=== PATIENT | male | born 1990 | race Caucasian/White ===

== ENCOUNTER 2016-08-15 05:29 | Emergency (ER) | payer OTHER ==
--- NOTE | 2016-08-15 06:46 | ED ORDER SUMMARY ---
..... Patient: SATURNINO HANNA OrderSheet [facility]ly [facility] VisitID: [id number] [address] [place] [address] 26y, M Registration Date/Time: 08/15/2016 ORDER SHEET Weight: 90.7 kg (stated) Allergies: GENERAL ORDERS: Urine Drug Screen Urgent (05:57 08/15/2016 Clement CARROLL) (Ack 6:00 Eileen Stogy Roller) MEDICATION ORDERS: IV FLUIDS: ORDER SHEET NOTES: [Electronically signed by Sahara Wheeler R.N. (06:46 08/15/2016)] [Electronically locked/signed by Sahara Wheeler R.N. (06:46 08/15/2016)]
--- NOTE | 2016-08-15 06:46 | ED ORDER SUMMARY ---
..... Patient: SATURNINO HANNA OrderSheet [facility] VisitID: [id number] [address] [place] [address] 26y, M Registration Date/Time: 08/15/2016 ORDER SHEET Weight: 90.7 kg (stated) Allergies: GENERAL ORDERS: Urine Drug Screen Urgent (05:57 08/15/2016 Clement CARROLL) (Ack 6:00 Eileen Technical Research Scientist) MEDICATION ORDERS: IV FLUIDS: ORDER SHEET NOTES: [Electronically signed by Sahara Wheeler R.N. (06:46 08/15/2016)] [Electronically locked/signed by Sahara Wheeler R.N. (06:46 08/15/2016)]
--- NOTE | 2016-08-15 06:46 | ED CLINICAL REPORT ---
Clinical Report - Physicians/Mid Levels [facility] [address] [place] [address] 08/15/2016 5:30 Patient: SATURNINO HANNA *This is a preliminary document and is subject to change Time Seen: 05:33. Arrived- By ambulance. Historian- patient and EMS personnel. HISTORY OF PRESENT ILLNESS Chief Complaint: DRUG OVERDOSE. This occurred just prior to arrival. Toxic symptoms present in ED with drowsiness and agitation. Single drug taken- Heroin. History of recent heroin use. Last used drugs just prior to arrival. Under influence in ED. Son Hill MD
--- NOTE | 2016-08-15 06:46 | ED NURSING NOTES ---
Clinical Report - Nurses [facility] [address] [place] [address] 08/15/2016 5:30 Patient: SATURNINO HANNA TRIAGE Triage time 05:33. Chief Complaint: LOSS OF CONSCIOUSNESS and UNRESPONSIVE and (pt was using heroin today,). --05:35 Sahara Wheeler R.N. Acuity: LEVEL 3. Alert. --05:43 Sahara Wheeler R.N. 05:39 08/15/16. BP: 133/87. HR: 90. RR: 15. O2 saturation: 100%. Pain level now: 0/10. --05:43 Sahara Wheeler R.N. Weight: 90.7 kg stated. Height/Length: 75 inches Per Patient. BMI: 25. --05:42 Sahara Wheeler R.N. History Arrived by EMS. Historian: patient. 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 Medications given- (2mg IntraNasally). --05:35 Sahara Wheeler R.N. ( pt refusing care, talking with EDMD, trying to leave against medical advice). --05:35 Sahara Wheeler R.N. SOCIAL HX: History of drug use: heroin. Recently used drugs today. --05:35 Sahara Wheeler R.N. SOCIAL HX: Never smoker. Occasional alcohol use. History of drug use: heroin. --05:43 Sahara Wheeler R.N. Interventions ID band on patient. To treatment room. --05:43 Sahara Wheeler R.N. PHYSICAL ASSESSMENT To room via stretcher. GENERAL / NEURO / PSYCH: Alert. Appears anxious. Patient's speech is slurred. Patient does not appear neat and clean. Patient appears unkempt. Poor hygiene. Clothes are dirty. RESPIRATORY: Respirations not labored. CVS: Capillary refill less than 2 seconds. SKIN: Skin is warm and dry. --05:44 Sahara Wheeler R.N. NURSING PROGRESS NOTES Head of bed elevated. Two patient identifiers checked. Call light placed in reach. Side rails up x 2. Bed placed in lowest position. Brakes of bed on. --:45 Sahara Wheeler R.N. Patient ready for evaluation- chart flagged. --:45 Sahara Wheeler R.N. focusing machine operator, pulse oximeter and NIBP monitor placed on patient; monitor alarms on. --:45 Sahara Wheeler R.N. ( pt continues to argue with staff about not having given consent to be here. explained to pt in detail, that if he leaves the narcan he was given will wear off and he could stop breathing again. Pt states that he understands that but does not want the charges a hospital visit costs. Pt informed that there are programs in place to help pay for his visits if he fills out paperwork. Pt fixated on the idea that it is "illegal to hold him here, against his will". continuing encouragement given for pt to lay back, and stay the 4 hours monitoring time.). --05:58 Sahara Wheeler R.N. 06:24 Patient out of room asking for coffee and water - watched pt as he got himself a cup of each. --06:34 Alexsander Hernandez R.N. 06:28 Patient came up to me while I was filling out the staffing board and stated I need to leave, I again explained to him why he needed to stay, and that if he left we would call the police, he stated "then call I'm leaving"- PD was called and I followed him to the corner if [place]. --06:39 Alexsander Hernandez RCheryl DISPOSITION / DISCHARGE <<STRICKEN ENTRY-- 06:06 08/15/16. BP: 102/68. HR: 78. RR: 15. O2 saturation: 100% on room air. Temp: deferred. Quiles-Batista pain scale: 04/03. --06:06 Sahara Wheeler R.N. --END STRIKE>> Charted on wrong patient. --06:19 Sahara Wheeler R.N. ( pt walks out of ED, Alexsander Pak RN walks with pt, trying to further explain to pt the dangers of him leaving against medical advise. Pt states he knows and doesn't believe that he is unable to make decisions for himself.). --06:30 Sahara Wheeler R.N. 06:30. The patient left the Emergency Department against medical advice. The patient appears to be alert, oriented x4, coherent and in no acute distress. He notified the ED staff prior to leaving the department and stated is leaving the ED due to personal reasons. Notified the ED physician of patient departure. Patient refused to sign form prior to leaving. He left the Emergency Department ambulatory. --06:45 Sahara Wheeler R.N. Locked/Released at 08/15/2016 6:46 by Sahara Wheeler R.N.
--- NOTE | 2016-08-15 06:46 | ED CLINICAL REPORT ---
Clinical Report - Physicians/Mid Levels [facility] [address] [place] [address] 08/15/2016 5:30 Patient: SATURNINO HANNA *This is a preliminary document and is subject to change Time Seen: 05:33. Arrived- By ambulance. Historian- patient and EMS personnel. HISTORY OF PRESENT ILLNESS Chief Complaint: DRUG OVERDOSE. This occurred just prior to arrival. Toxic symptoms present in ED with drowsiness and agitation. Single drug taken- Heroin. History of recent heroin use. Last used drugs just prior to arrival. Under influence in ED. Son Hill MD
--- NOTE | 2016-08-15 06:46 | ED NURSING NOTES ---
Clinical Report - Nurses [facility] [address] [place] [address] 08/15/2016 5:30 Patient: SATURNINO HANNA TRIAGE Triage time 05:33. Chief Complaint: LOSS OF CONSCIOUSNESS and UNRESPONSIVE and (pt was using heroin today,). --05:35 Sahara Wheeler R.N. Acuity: LEVEL 3. Alert. --05:43 Sahara Wheeler R.N. 05:39 08/15/16. BP: 133/87. HR: 90. RR: 15. O2 saturation: 100%. Pain level now: 0/10. --05:43 Sahara Wheeler R.N. Weight: 90.7 kg stated. Height/Length: 75 inches Per Patient. BMI: 25. --05:42 Sahara Wheeler R.N. History Arrived by EMS. Historian: patient. 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 Medications given- (2mg IntraNasally). --05:35 Sahara Wheeler R.N. ( pt refusing care, talking with EDMD, trying to leave against medical advice). --05:35 Sahara Wheeler R.N. SOCIAL HX: History of drug use: heroin. Recently used drugs today. --05:35 Sahara Wheeler R.N. SOCIAL HX: Never smoker. Occasional alcohol use. History of drug use: heroin. --05:43 Sahara Wheeler R.N. Interventions ID band on patient. To treatment room. --05:43 Sahara Wheeler R.N. PHYSICAL ASSESSMENT To room via stretcher. GENERAL / NEURO / PSYCH: Alert. Appears anxious. Patient's speech is slurred. Patient does not appear neat and clean. Patient appears unkempt. Poor hygiene. Clothes are dirty. RESPIRATORY: Respirations not labored. CVS: Capillary refill less than 2 seconds. SKIN: Skin is warm and dry. --05:44 Sahara Wheeler R.N. NURSING PROGRESS NOTES Head of bed elevated. Two patient identifiers checked. Call light placed in reach. Side rails up x 2. Bed placed in lowest position. Brakes of bed on. --:45 Sahara Wheeler R.N. Patient ready for evaluation- chart flagged. --:45 Sahara Wheeler R.N. lunchroom monitor, pulse oximeter and NIBP monitor placed on patient; monitor alarms on. --:45 Sahara Wheeler R.N. ( pt continues to argue with staff about not having given consent to be here. explained to pt in detail, that if he leaves the narcan he was given will wear off and he could stop breathing again. Pt states that he understands that but does not want the charges a hospital visit costs. Pt informed that there are programs in place to help pay for his visits if he fills out paperwork. Pt fixated on the idea that it is "illegal to hold him here, against his will". continuing encouragement given for pt to lay back, and stay the 4 hours monitoring time.). --05:58 Sahara Wheeler R.N. 06:24 Patient out of room asking for coffee and water - watched pt as he got himself a cup of each. --06:34 Alexsander Hernandez R.N. 06:28 Patient came up to me while I was filling out the staffing board and stated I need to leave, I again explained to him why he needed to stay, and that if he left we would call the police, he stated "then call I'm leaving"- PD was called and I followed him to the corner if [place]. --06:39 Alexsander Hernandez RCheryl DISPOSITION / DISCHARGE <<STRICKEN ENTRY-- 06:06 08/15/16. BP: 102/68. HR: 78. RR: 15. O2 saturation: 100% on room air. Temp: deferred. Quiles-Batista pain scale: 04/03. --06:06 Sahara Wheeler R.N. --END STRIKE>> Charted on wrong patient. --06:19 Sahara Wheeler R.N. ( pt walks out of ED, Alexsander Pak RN walks with pt, trying to further explain to pt the dangers of him leaving against medical advise. Pt states he knows and doesn't believe that he is unable to make decisions for himself.). --06:30 Sahara Wheeler R.N. 06:30. The patient left the Emergency Department against medical advice. The patient appears to be alert, oriented x4, coherent and in no acute distress. He notified the ED staff prior to leaving the department and stated is leaving the ED due to personal reasons. Notified the ED physician of patient departure. Patient refused to sign form prior to leaving. He left the Emergency Department ambulatory. --06:45 Sahara Wheeler R.N. Locked/Released at 08/15/2016 6:46 by Sahara Wheeler R.N.
== END 2016-08-15 06:30 | disposition left against medical advice (07) ==
LOC: ED SRH 05:29
DX: Z53.21 Procedure and treatment not carried out due to patient leaving prior to being seen by health care provider (principal)